=== PATIENT | female | born 1975 | race Caucasian/White ===

== ENCOUNTER 2020-04-13 19:04 | Inpatient (IN) ==
[2020-04-13] MEDS ORDERED: Nicotine 2 MG GUM BC PRN (22:56)
[2020-04-13] MEDS ORDERED: *HR* LORazepam 1 MG TABLET PO PRN (22:56)
[2020-04-13] MEDS ORDERED: Haloperidol Lactate 5 MG/ML VIAL IM PRN (22:56)
[2020-04-13] MEDS ORDERED: *HR* LORazepam 2 MG/ML VIAL IM PRN (22:56)
[2020-04-13] MEDS ORDERED: Acetaminophen 325 MG TABLET PO PRN (22:56)
[2020-04-13] MEDS ORDERED: haloperidoL 5 MG TABLET PO PRN (22:56)
[2020-04-13] MEDS ORDERED: QUEtiapine Fumarate 25 MG TABLET PO PRN (22:56)
[2020-04-13] MEDS ORDERED: MOM Conc 10 ML UD.LIQ PO PRN (22:56)
[2020-04-13] MEDS ORDERED: Mag Hydrox/Al Hydrox/Simeth 30 ML UDC PO PRN (22:56)
[2020-04-13] MEDS: hydrOXYzine pamoate 25 MG CAPSULE PO PRN (23:31)
[2020-04-14] MEDS: risperiDONE 1 MG TABLET PO SCH (20:23)
[2020-04-15] MEDS: risperiDONE 1 MG TABLET PO SCH ×2 (10:54→20:26)
[2020-04-15] MEDS: hydrOXYzine pamoate 25 MG CAPSULE PO PRN (20:26)
[2020-04-16 08:57] VITALS: BP 81/48
[2020-04-16] MEDS: risperiDONE 1 MG TABLET PO SCH (10:21)
== END 2020-04-16 12:50 | disposition home or self-care (01) | DRG 750 ==
LOC: EMEROOARM 19:04 → 1ANU 22:51
PROVIDERS: ADMIT Psychiatry & Neurology Psychiatry; ATTEND Psychiatry & Neurology Psychiatry